=== PATIENT | female | born 1975 | race Caucasian/White ===

== ENCOUNTER 2018-06-16 01:42 | Emergency (ER) | payer OTHER, BC ==
[2018-06-16] MEDS: DIPHENHYDRAMINE 50 MG INJ IV (01:52)
[2018-06-16] MEDS ORDERED: METHYLPREDNISOLONE 125 MG INJ (01:54)
[2018-06-16] MEDS ORDERED: EPINEPHrine 1 MG INJ (01:54)
[2018-06-16] MEDS: METHYLPREDNISOLONE 125 MG INJ IV (01:54)
[2018-06-16] MEDS ORDERED: DIPHENHYDRAMINE 50 MG INJ (01:54)
[2018-06-16] MEDS: ALBUTEROL 0.083% (NEB) 2.5 MG/3 ML AMP INH (02:08)
[2018-06-16] MEDS: IPRATROPIUM (NEB) 0.5 MG/2.5 ML AMP INH (02:08)
[2018-06-16 02:20] LABS: ADD MAN DIFF? NO
[2018-06-16 02:21] LABS: BASOPHIL # 0.1 10^3/ul (0.0-0.1); BASOPHILS % 0.7 % (0.0-2.0); EOSINOPHILS # 0.2 10^3/ul (0.0-0.5); EOSINOPHILS % 2.3 % (0.0-7.0); HEMATOCRIT 40.5 % (37.0-47.0); HEMOGLOBIN 13.2 g/dl (12.0-16.0); LYMPHOCYTES # 4.6 10^3/ul (0.8-2.9); LYMPHOCYTES % 44.7 % (15.0-51.0); MEAN CORPUSCULAR HGB CONC 32.6 g/dl (32.0-37.0); MEAN PLATELET VOLUME 10.7 fl (7.4-10.4); MONOCYTE # 0.8 10^3/ul (0.3-0.9); MONOCYTES % 8.2 % (0.0-11.0); NEUTROPHIL # 4.5 10^3/ul (1.6-7.5); NEUTROPHILS % 43.8 % (39.0-77.0); PLATELET COUNT 288 10^3/UL (140-415); RED BLOOD COUNT 4.88 10^6/ul (4.20-5.40); RED CELL DISTRIBUTION WIDTH 13.3 % (11.5-14.5)
[2018-06-16 02:21] LABS: WHITE BLOOD COUNT 10.2 10^3/ul (4.8-10.8)
[2018-06-16] MEDS: EPINEPHrine 1 MG INJ IM (02:32)
[2018-06-16 02:40] LABS: ALANINE AMINOTRANSFERASE 18 IU/L (13-69); ALBUMIN 4.3 g/dl (3.3-4.9); ALBUMIN/GLOBULIN RATIO 1.26; ALKALINE PHOSPHATASE 96 IU/L (42-121); ANION GAP 11 (5-13); ASPARTATE AMINO TRANSFERASE 18 IU/L (15-46); BILIRUBIN,INDIRECT 0.4 mg/dl (0-1.1); BILIRUBIN,TOTAL 0.4 mg/dl (0.2-1.3); BLOOD UREA NITROGEN 15 mg/dl (7-20); CALCIUM 9.5 mg/dl (8.4-10.2); CARBON DIOXIDE 23 mmol/L (21-31); CHLORIDE 109 mmol/L (97-110); CREATININE 0.69 mg/dl (0.44-1.00); Estimated GFR > 60 mL/min (>60); GLUCOSE 97 mg/dl (70-220); SODIUM 143 mmol/L (135-144); TOTAL PROTEIN 7.7 g/dl (6.1-8.1)
[2018-06-16] MEDS: FAMOTIDINE 20 MG INJ IV (02:47)
[2018-06-16] MEDS: LORAZEPAM 2 MG INJ IV (02:52)
== END 2018-06-16 06:10 | disposition home or self-care (01) ==
LOC: E/R 01:42
DX: T78.1XXA Other adverse food reactions, not elsewhere classified, initial encounter (principal); R21 Rash and other nonspecific skin eruption; R05 Cough; Z91.010 Allergy to peanuts
CPT/HCPCS: 71045; 80053; 85025; 94664; 96372; 96374; 96375; 99284-25